=== PATIENT | female | born 1970 | race American Indian/Alaskan Native ===

== ENCOUNTER 2017-11-01 17:25 | Observation (INO) | payer OTHER ==
[2017-11-01 20:17] LABS: Basophils # (Auto) 0.1 K/mm3 (0.0-0.1); Basophils % (Auto) 0.8 % (0.0-1.8); Eosinophils # (Auto) 0.2 K/mm3 (0.0-0.4); Eosinophils % (Auto) 2.4 % (0.0-4.3); Hematocrit 35.4 % (30.3-42.9); Hemoglobin 11.6 gm/dl (10.1-14.3); Lymphocytes # (Auto) 2.4 K/mm3 (1.2-5.4); Mean Corpuscular HGB Conc 33 % (30-34); Mean Corpuscular Hemoglobin 28 pg (28-32); Mean Corpuscular Volume 85 fl (79-97); Monocytes # (Auto) 0.4 K/mm3 (0.0-0.8); Monocytes % (Auto) 4.9 % (0.0-7.3); Platelet Count 293 K/mm3 (140-440); Red Blood Count 4.17 M/mm3 (3.65-5.03); Red Cell Distribution Width 15.3 % (13.2-15.2)
[2017-11-01 20:31] LABS: Alanine Aminotransferase 11 units/L (7-56); Albumin 3.9 g/dL (3.9-5); BUN/Creatinine Ratio 14; Blood Urea Nitrogen 11 mg/dL (7-17); Calcium 9.3 mg/dL (8.4-10.2); Hemolysis Index 10
[2017-11-02 00:40] LABS: HCG Qualitative,Urine Negative (Negative)
[2017-11-02 00:41] LABS: Bacteria,Urine 4+ /HPF (Negative); Bilirubin,Urine NEG (Negative); Blood,Urine NEG (Negative); Color,Urine Yellow (Yellow); Mucus,Urine FEW /HPF; Protein,Urine <15 mg/dL mg/dL (Negative); Urobilinogen,Urine < 2.0 mg/dL (<2.0)
--- NOTE | 2017-11-02 01:02 | Emergency Department Report ---
HPI - General Chief Complaint: Nausea/Vomiting/Diarrhea Time Seen by Provider: 11/02/17 00:39 - HPI HPI: Room 7 The patient is a 47-year-old female presenting with a chief complaint of chest pain and right-sided numbness. The patient states last night for approximately 10 minutes for right upper extremity became numb. The patient states she has some nausea and vomiting yesterday as well. The patient states today she developed substernal dull chest pain constantly for 1 hour in addition to having nausea, slight shortness of breath and diaphoresis. In the ED the patient states the toes of her right foot became numb/tingling for one hour and then resolved. Patient denies ever having dysarthria, dysphasia or weakness. Patient states she's never had a stress test or cardiac catheterization Location: [See above] Duration: [See above] Quality: Dull, tingling Severity: Currently 0/10 Modifying factors: [see above] Context: [see above] Mode of transportation: [not driving] ED Past Medical Hx - Past Medical History Previous Medical History?: No - Surgical History Past Surgical History?: Yes Hx Cholecystectomy: Yes Additional Surgical History: Hernia repair - Family History Family history: CAD/RI - Social History Smoking Status: Never Smoker Substance Use Type: Alcohol (occasional) ED Review of Systems ROS: Stated complaint: NAUSEA Other details as noted in HPI Constitutional: diaphoresis Respiratory: shortness of breath Cardiovascular: chest pain Gastrointestinal: nausea, vomiting Neurological: numbness, paresthesias. denies: weakness Physical Exam - Physical Exam Vital Signs: Vital Signs 11/01/17 17:33 Temperature 98.4 F Pulse Rate 104 H Respiratory 16 Rate Blood Pressure 158/85 O2 Sat by Pulse 100 Oximetry Physical Exam: GENERAL: The patient is well-developed well-nourished female lying on stretcher not appear to be in acute distress. [] HEENT: Normocephalic. Atraumatic. Extraocular motions are intact. Patient has moist mucous membranes. NECK: Supple. Trachea midline CHEST/LUNGS: Clear to auscultation. There is no respiratory distress noted. HEART/CARDIOVASCULAR: Regular. There is no tachycardia. There is no gallop rub or murmur. ABDOMEN: Abdomen is soft, nontender. Patient has normal bowel sounds. There is no abdominal distention. SKIN: There is no rash. There is no edema. There is no diaphoresis. NEURO: The patient is awake, alert, and oriented. The patient is cooperative. The patient has no focal neurologic deficits. The patient has normal speech. Cranial nerves II through XII grossly intact, no drift. Normal sensation throughout. Moves all extremities well MUSCULOSKELETAL: There is no evidence of acute injury. ED Course Vital Signs 11/01/17 17:33 Temperature 98.4 F Pulse Rate 104 H Respiratory 16 Rate Blood Pressure 158/85 O2 Sat by Pulse 100 Oximetry ED Medical Decision Making - Lab Data Result diagrams: 11/01/17 19:58 11/01/17 19:58 Laboratory Tests 11/01/17 11/01/17 11/01/17 19:58 19:58 Unknown WBC 7.8 RBC 4.17 Hgb 11.6 Hct 35.4 MCV 85 MCH 28 MCHC 33 RDW 15.3 H Plt Count 293 Lymph % (Auto) 30.0 [place] % (Auto) 4.9 Eos % (Auto) 2.4 Baso % (Auto) 0.8 Lymph # 2.4 [place] # 0.4 Eos # 0.2 Baso # 0.1 Seg Neutrophils % 61.9 Seg Neutrophils # 4.9 Sodium 138 Potassium 4.0 Chloride 99.1 Carbon Dioxide 27 Anion Gap 16 BUN 11 Creatinine 0.8 Estimated GFR > 60 BUN/Creatinine Ratio 14 Glucose 95 Calcium 9.3 Total Bilirubin < 0.20 AST 14 ALT 11 Alkaline Phosphatase 98 Total Creatine Kinase CK-MB (CK-2) CK-MB (CK-2) Rel Index Troponin T Total Protein 7.3 Albumin 3.9 Albumin/Globulin Ratio 1.1 Urine Color Yellow Urine Turbidity Clear Urine pH 6.0 Ur Specific [place] 1.018 Urine Protein <15 mg/dl Urine Glucose (UA) Neg Urine Ketones Neg Urine Blood Neg Urine Nitrite Neg Ur Reducing Substances Not Reportable Urine Bilirubin Neg Urine Ictotest Not Reportable Urine Urobilinogen < 2.0 Ur Leukocyte Esterase Tr Urine WBC (Auto) 2.0 Urine RBC (Auto) 1.0 U Epithel Cells (Auto) 9.0 Urine Bacteria (Auto) 4+ Urine Mucus Few Urine HCG, Qual Negative 11/02/17 01:26 WBC RBC Hgb Hct MCV MCH MCHC RDW Plt Count Lymph % (Auto) [place] % (Auto) Eos % (Auto) Baso % (Auto) Lymph # [place] # Eos # Baso # Seg Neutrophils % Seg Neutrophils # Sodium Potassium Chloride Carbon Dioxide Anion Gap BUN Creatinine Estimated GFR BUN/Creatinine Ratio Glucose Calcium Total Bilirubin AST ALT Alkaline Phosphatase Total Creatine Kinase 117 CK-MB (CK-2) 1.1 CK-MB (CK-2) Rel Index 0.9 Troponin T < 0.010 Total Protein Albumin Albumin/Globulin Ratio Urine Color Urine Turbidity Urine pH Ur Specific [place] Urine Protein Urine Glucose (UA) Urine Ketones Urine Blood Urine Nitrite Ur Reducing Substances Urine Bilirubin Urine Ictotest Urine Urobilinogen Ur Leukocyte Esterase Urine WBC (Auto) Urine RBC (Auto) U Epithel Cells (Auto) Urine Bacteria (Auto) Urine Mucus Urine HCG, Qual - EKG Data -: EKG Interpreted by Me EKG shows normal: sinus rhythm Rate: normal - EKG Data When compared to previous EKG there are: previous EKG unavailable Interpretation: nonspecific ST-T wave bala (T-wave inversions in leads V3, V4) - Radiology Data Radiology results: report reviewed (CT head), image reviewed (chest x-ray, CT head) interpreted by me: Chest x-ray-no focal infiltrates, no pneumothorax FINAL REPORT EXAM: CT HEAD/BRAIN WO CON HISTORY: intermittent RUE and right toe numbness TECHNIQUE: Routine axial imaging was obtained of the brain without IV contrast FINDINGS: There is no evidence of acute stroke or hemorrhage. The ventricular system is appropriate in size and is symmetric. There are no extra-axial fluid collections. The basal cisterns appear normal. The visualized sinuses are clear. The mastoid air cells are well pneumatized. The calvarium appears intact IMPRESSION: Within normal limits. Transcribed By: RB Dictated By: TOMASA SURESH MD Electronically Authenticated By: TOMASA SURESH MD Signed Date/Time: 11/01/172129 DD/ 29 TD/TT: 11/01/172129 - Differential Diagnosis ACS, angina, TIA Critical care attestation.: If time is entered above; I have spent that time in minutes in the direct care of this critically ill patient, excluding procedure time. ED Disposition Clinical Impression: Chest pain, Paresthesia of right upper extremity, Paresthesia of right foot, T wave inversion in EKG Disposition: OP ADMIT IP TO THIS HOSP Is pt being admited?: Yes Does the pt Need Aspirin: Yes Condition: Fair Instructions: Chest Pain (ED) Referrals: CARI NAIK MD [Primary Care Provider] - 3-5 Days Time of Disposition: 02:53 (hospitalist paged)
--- NOTE | 2017-11-02 01:16 | XRay Report ---
FINAL REPORT PROCEDURE: XR CHEST 1V AP TECHNIQUE: Chest radiograph anteroposterior view. CPT 82526 HISTORY: chest pain COMPARISON: No prior studies are available for comparison. FINDINGS: Heart: Normal. Mediastinum/Vessels: Normal. Lungs/Pleural space: Normal. Bony thorax: No acute osseous abnormality. Life support devices: None. IMPRESSION: No acute cardiopulmonary abnormality.
--- NOTE | 2017-11-02 01:33 | Cat Scan Report ---
FINAL REPORT EXAM: CT HEAD/BRAIN WO CON HISTORY: intermittent RUE and right toe numbness TECHNIQUE: Routine axial imaging was obtained of the brain without IV contrast FINDINGS: There is no evidence of acute stroke or hemorrhage. The ventricular system is appropriate in size and is symmetric. There are no extra-axial fluid collections. The basal cisterns appear normal. The visualized sinuses are clear. The mastoid air cells are well pneumatized. The calvarium appears intact IMPRESSION: Within normal limits.
[2017-11-02] MEDS ORDERED: ASPIRIN PO ONE (01:37)
[2017-11-02 02:44] LABS: Creatine Kinase MB 1.1 ng/mL (0.0-4.0)
[2017-11-02] MEDS ORDERED: ZOFRAN IV PRN (04:54)
[2017-11-02] MEDS ORDERED: MILK OF MAGNESIA PO PRN (04:54)
[2017-11-02] MEDS ORDERED: TYLENOL PO PRN (04:54)
[2017-11-02] MEDS ORDERED: DULCOLAX PR PRN (04:54)
--- NOTE | 2017-11-02 05:01 | History and Physical Report ---
History of Present Illness Date of examination: 11/02/17 History of present illness: 47-year-old woman with no medical problems comes emergency room because she developed right hand numbness and nausea that lasted for 10 minutes. Also complaining of chest pain in the epigastric area which she described as aching pain, constant, 1 hour, intensity 5/10, no radiation. She cannot identify exacerbating or relieving factors. Denies shortness, diaphoresis, palpitation Review Of Systems: Constitutional: no weight loss Ears, eyes, nose, mouth and throat: no nasal congestion, no nasal discharge, no sinus pressure, blurry vision, diplopia Neck: No neck pain or rigidity. Cardiovascular: No palpitations Respiratory: No shortness of breath, cough Gastrointestinal: No abdominal pain, hematochezia Genitourinary : no dysuria, frequency , hematuria Musculoskeletal: no muscle ache Integumentary: no rash, no pruritis Neurological: no parathesias, focal weakness Endocrine: no cold or heat intolerance, no polyuria or polydipsia Hematologic/Lymphatic: no easy bruising, no easy bleeding, no gland swelling Allergic/Immunologic: no urticaria, no angioedema. PAST MEDICAL HISTORY: None PAST SURGICAL HISTORY: Cholecystectomy FAMILY HISTORY: Hypertension SOCIAL HISTORY: Denies alcohol, tobacco, drugs Medications and Allergies Allergies Allergy/AdvReac Type Severity Reaction Status Date / Time No Known Allergies Allergy Verified 11/02/17 04:57 Active Meds: Active Medications Acetaminophen (Tylenol) 650 mg PO Q4H PRN PRN Reason: Pain MILD(1-3)/Fever >100.5/CHOW Aspirin (Aspirin) 325 mg PO QDAY MAMADOU Bisacodyl (Dulcolax) 10 mg DE QDAY PRN PRN Reason: Constipation unrelieved by MOM Enoxaparin Sodium (Lovenox) 30 mg SUB-Q QDAY MAMADOU Magnesium Hydroxide (Milk Of Magnesia) 30 ml PO Q4H PRN PRN Reason: Constipation Ondansetron HCl (Zofran) 4 mg IV Q8H PRN PRN Reason: N/V unrelieved by Reglan Exam - Physical Exam Narrative exam: Gen. appearance: Patient lying in bed in no acute distress HEENT: Normocephalic/atraumatic, pupils equal round reactive to light, extra occular movement intact, no scleral icterus, no JVD or thyromegaly or nodule, neck is supple, mucous membrane moist, no erythema or exudate Heart: S1-S2, regular rate and rhythm Lungs: Clear to auscultation bilateral breathing comfortable Abdomen: Positive bowel sounds, nontender, nondistended, no organomegaly Extremities: No edema, cyanosis, clubbing Neuro:: Oriented 3 , cranial nerves II-12 intact, speech, motor intact Skin: No rash, nodules, warm dry - Constitutional Vitals: Temp Pulse Resp BP Pulse Ox 98.4 F 58 L 11 L 134/66 100 11/01/17 17:33 11/02/17 03:31 11/02/17 03:31 11/02/17 03:31 11/02/17 03:31 Results - Labs CBC & Chem 7: 11/01/17 19:58 11/01/17 19:58 Labs: Abnormal lab results 11/01/17 Range/Units 19:58 RDW 15.3 H (13.2-15.2) % - Imaging and Cardiology EKG: image reviewed Chest x-ray: image reviewed CT Scan - head: report reviewed Assessment and Plan Assessment Atypical chest pain, rule out ACS Right arm numbness which is resolved Elevated blood pressure on arrival Plan Admit to medicine Check cardiac enzymes, stress test Start aspirin, DVT prophylaxis, do neuro checks
[2017-11-02] MEDS ORDERED: LEXISCAN IV ONE ×2 (08:02→08:09)
[2017-11-02 08:59] LABS: Creatine Kinase MB < 1.0 ng/mL (0.0-4.0)
[2017-11-02] MEDS ORDERED: LOVENOX SUB-Q SCH ×2 (10:00)
[2017-11-02] MEDS ORDERED: ASPIRIN PO SCH (10:00)
[2017-11-02 10:50] VITALS: BP 123/67
--- NOTE | 2017-11-02 13:28 | Discharge Summary ---
Providers - Providers Date of Admission: 11/02/17 04:54 Date of discharge: 11/02/17 Attending physician: NYDIA PEREZ Primary care physician: CARI NAIK Hospitalization Condition: Stable Hospital course: Patient is a 47-year-old woman without chronic medical problems who presented with right hand numbness, nausea and chest pains. She underwent thorough extensive cardiac workup including negative stress test. She initially was doing treadmill stress test was having bigeminy and she was evaluated by Dr. Goode, clinical pharmacy specialist and he changed her to a Lexiscan thallium which were negative. She will visit him in the office. Portable chest x-ray read as no acute findings CT head without contrast no acute findings, negative troponins, unremarkable CBC and CMP. Her symptoms have resolved. -Chest pain, likely muscle skeletal -PVCs: Follow-up with Dr. Goode, refrain from coffee which is her normal routine in the morning Disposition: DC-01 TO HOME OR SELFCARE Time spent for discharge: 35 minutes Core Measure Documentation - Palliative Care Palliative Care/ Comfort Measures: Not Applicable - Core Measures Any of the following diagnoses?: none - VTE Discharge Requirements Deep Vein Thrombosis/Pulmonary Embolism Present on Admission: No Has pt received <5 days of overlap therapy or INR<2.0: No Anticoagulant overlap therapy prescribed at discharge: No Contraindication No Overlap Therapy order at DC: Not Indicated Exam - Physical Exam Narrative exam: GEN: WDWN, NAD, AWAKE, ALERT, ORIENTATED 3, bmi 35.8 HEENT: NCAT, EOMI, PERRL, OP Clear NECK: supple, no adenopathy, eqivocal thyromegaly, she does have a thick neck, no JVD CVS/HEART: RRR, NORMAL S1S2, pulses present bilaterally CHEST/LUNGS: CTA B, Symmetrical chest expansion, good air entry bilaterally GI/Abdomen: soft, NTND, good bowel sounds, no guarding or rebound /Bladder: no suprapubic tenderness, no CVA or paraspinal tenderness EXT/Skin: no c/c/e, no obvious rash MSK: FROM x 4 Neuro: CN 2-12 grossly intact, no new focal deficits Psych: calm - Constitutional Vitals: Temp Pulse Resp BP Pulse Ox 97.6 F 62 18 123/67 98 11/02/17 10:05 11/02/17 11:26 11/02/17 10:05 11/02/17 10:35 11/02/17 10:05 Plan Activity: other (no strenous activity until cleared by pcp) Diet: regular Additional Instructions: Refrain from coffee Follow up with: CARI NAIK MD [Primary Care Provider] - 3-5 Days CARLITA GOODE MD [Staff Physician] - 14 Days
--- NOTE | 2017-11-04 00:15 | Treadmill Report ---
THALLIUM STRESS TEST LEFT VENTRICLE: Left ventricular chamber size is within normal spread. Perfusion study demonstrates homogeneous uptake of the tracer in all segments, no significant perfusion defects identified. Normal apical thinning is noted. Gated analysis demonstrates normal left ventricular systolic function, ejection fraction 60%. CONCLUSION: Normal myocardial perfusion study. JOB# [id number] CA/NTS
== END 2017-11-02 15:45 | disposition home or self-care (01) ==
LOC: ED 17:25 → 4A 11-02 04:54 → INTOOBSV 11-02 04:54 → 4A 11-02 06:05
PROVIDERS: ADMIT Internal Medicine; ATTEND Internal Medicine
DX: R07.89 Other chest pain (principal); R20.2 Paresthesia of skin; R03.0 Elevated blood-pressure reading, without diagnosis of hypertension; Z90.49 Acquired absence of other specified parts of digestive tract; Z82.49 Family history of ischemic heart disease and other diseases of the circulatory system; Z72.89 Other problems related to lifestyle
CPT/HCPCS: 36415; 70450; 71045; 78452; 80053; 81001; 81025; 82550; 82553; 84484; 85025; 93005; 93010; 93017; 96374; 99285; A9502; G0378; J1650; J2785